=== PATIENT | female | born 1980 ===

== ENCOUNTER 2016-11-20 13:04 | Emergency (ER) | payer MEDICAID ==
[2016-11-20 13:16] VITALS: BP 139/85; PULSE 99; RESP 16; TEMP 98.2; O2SAT 100
--- NOTE | 2016-11-20 13:43 | ED PDOC ---
HPI: Skin/Bite Injury Time Seen by Provider: 11/20/16 13:17 Chief Complaint (Nursing): Abnormal Skin Integrity Chief Complaint (Provider): Rash History Per: Patient History/Exam Limitations: no limitations Onset/Duration Of Symptoms: Days Current Symptoms Are (Timing): Still Present Location Of Injury: Right: Back (lower), Left: Back Additional History Per: Patient Additional Complaint(s): 36yo female, presents to the ED for evaluation of a pruritic rash, present on her lower back for the past 9 days. She reports similar rash in the past but states this instance is the worst. She denies any fever, chills, new clothing or exposure to new detergents, lotions. She offers no other medical complaints. Past Medical History Reviewed: Historical Data, Nursing Documentation, Vital Signs Vital Signs: Last Vital Signs Temp 98.2 F 11/20/16 13:12 Pulse 99 H 11/20/16 13:12 Resp 16 11/20/16 13:12 BP 139/85 11/20/16 13:12 Pulse Ox 100 11/20/16 15:04 - Medical History PMH: HTN - Surgical History Surgical History: No Surg Hx - Family History Family History: States: No Known Family Hx, Unknown Family Hx - Immunization History Hx Tetanus Toxoid Vaccination: No Hx Influenza Vaccination: No Hx Pneumococcal Vaccination: No - Home Medications Home Medications: Ambulatory Orders Medication Instructions Recorded Naproxen [Naprosyn] 1 tab PO BID PRN #25 tab 06/12/14 Azithromycin [Zithromax] 250 mg PO DAILY #6 tab 11/19/15 Naproxen [Naprosyn] 500 mg PO BID #20 tab 11/19/15 oxyCODONE/Acetaminophen [Percocet 1 ea PO Q6H PRN #12 tab 11/19/15 5/325 mg Tab] Cephalexin [cephalexin] 500 mg PO Q6 #28 cap 11/20/16 Mupirocin 2% Cream [Bactroban 1 applic TOP BID #1 tube 11/20/16 Cream] - Allergies Allergies/Adverse Reactions: Allergies Allergy/AdvReac Type Severity Reaction Status Date / Time peanut Allergy RASH Verified 11/19/15 14:23 pineapple Allergy RASH Verified 11/19/15 14:24 Review of Systems ROS Statement: Except As Marked, All Systems Reviewed And Found Negative Constitutional: Negative for: Fever, Chills Skin: Positive for: Rash Physical Exam - Reviewed Nursing Documentation Reviewed: Yes Vital Signs Reviewed: Yes - Physical Exam Appears: Positive for: Non-toxic, No Acute Distress Head Exam: Positive for: ATRAUMATIC, NORMAL INSPECTION, NORMOCEPHALIC Skin: Positive for: Warm, Rash (scatteres fernucles noted to bilateral lower back.) Cardiovascular/Chest: Positive for: Regular Rate, Rhythm Respiratory: Negative for: Respiratory Distress Neurologic/Psych: Positive for: Alert, Oriented. Negative for: Motor/Sensory Deficits - ECG O2 Sat by Pulse Oximetry: 100 (RA) Pulse Ox Interpretation: Normal - Radiology X-Ray: Read By Radiologist X-Ray Interpretation: Other (no displaced fx) - Progress ED Course And Treament: Pt. evaluated by Dr. Vega who agrees with plan and disposition. Medical Decision Making Medical Decision Making: Time: 1326 Impression: Likely folliculitis Plan: -- Fingerstick Reassess Scribe Attestation: Documented by Tarah Lang acting as a scribe for ELOINA Moraes Provider Attestation: All medical record entries made by the Scribe were at my direction and personally dictated by me. I have reviewed the chart and agree that the record accurately reflects my personal performance of the history, physical exam, medical decision making, and the department course for this patient. I have also personally directed, reviewed, and agree with the discharge instructions and disposition. Disposition - Clinical Impression Clinical Impression: Cellulitis - Patient ED Disposition Is Patient to be Admitted: No - Disposition Referrals: [facility] [place] [Outside] [facility] [Outside] Disposition: Routine/Home Disposition Time: 14:59 Condition: STABLE Prescriptions: Cephalexin [cephalexin] 500 mg PO Q6 #28 cap Mupirocin 2% Cream [Bactroban Cream] 1 applic TOP BID #1 tube Instructions: Cellulitis (ED) Forms: [employer] (Rwandan) Print Language: K[place]
== END 2016-11-20 15:10 | disposition home or self-care (01) ==
LOC: H.ER 13:04
DX: L03.90 Cellulitis, unspecified (principal); I10 Essential (primary) hypertension

== ENCOUNTER 2018-02-05 15:33 | Emergency (ER) | payer MEDICAID ==
--- NOTE | 2018-02-05 15:53 | ED PDOC ---
HPI: Influenza Time Seen by Provider: 02/05/18 15:45 Chief Complaint: Cough, Cold, Congestion Chief Complaint (Provider): Cough History Per: Patient Exam Limitations: no limitations Onset/Duration Of Symptoms: Days (5x days) Symptoms include: bodyaches, sore throat, cough. denies: fever (fever initially, has since resolved), nasal congestion Additional complaint(s):: 37 year old female with a past medical history of hypertension presents to the ED for an evaluation of a cough that started 5x days ago. Patient reports having associated symptoms of a sore throat, bodyaches, and initially a fever, which has resolved. Patient reports taking mucinex with some relief. Patient denies having nasal congestion. PMD: None provided Past Medical History Reviewed: Historical Data, Nursing Documentation, Vital Signs Vital Signs: Last Vital Signs Temp 97.6 F 02/05/18 15:38 Pulse 101 H 02/05/18 15:38 Resp 20 02/05/18 15:38 BP 154/97 H 02/05/18 15:38 Pulse Ox 98 02/05/18 15:38 CONOR Report Viewed: Yes - Medical History PMH: HTN - Family History Family History: States: No Known Family Hx - Social History Current smoker - smoking cessation education provided: No Alcohol: Occasional Drugs: Denies - Immunization History Hx Tetanus Toxoid Vaccination: No Hx Influenza Vaccination: No Hx Pneumococcal Vaccination: No - Home Medications Home Medications: Ambulatory Orders Medication Instructions Recorded Naproxen [Naprosyn] 1 tab PO BID PRN #25 tab 06/12/14 Azithromycin [Zithromax] 250 mg PO DAILY #6 tab 11/19/15 Naproxen [Naprosyn] 500 mg PO BID #20 tab 11/19/15 oxyCODONE/Acetaminophen [Percocet 1 ea PO Q6H PRN #12 tab 11/19/15 5/325 mg Tab] Cephalexin [cephalexin] 500 mg PO Q6 #28 cap 11/20/16 Mupirocin 2% Cream [Bactroban 1 applic TOP BID #1 tube 11/20/16 Cream] Albuterol HFA [Ventolin HFA 90 2 puff IH [id number] PRN #1 inhaler 02/05/18 mcg/actuation (8 g)] Ibuprofen [Motrin] 600 mg PO Q8 PRN #21 tab 02/05/18 Promethazine/Codeine 5 ml PO Q12 PRN #100 ml 02/05/18 [Codeine/Promethazine 10 MG/5 Ml-6.25 MG/5 Ml] - Allergies Allergies/Adverse Reactions: Allergies Allergy/AdvReac Type Severity Reaction Status Date / Time peanut Allergy RASH Verified 02/05/18 15:38 pineapple Allergy RASH Verified 02/05/18 15:38 Review of Systems ROS Statement: Except As Marked, All Systems Reviewed And Found Negative Constitutional: Positive for: Other (bodyaches). Negative for: Fever (fever initially, has since resolved) ENT: Positive for: Throat Pain. Negative for: Nose Congestion Respiratory: Positive for: Cough Physical Exam - Reviewed Nursing Documentation Reviewed: Yes Vital Signs Reviewed: Yes - Physical Exam Appears: Positive for: Well, Non-toxic, No Acute Distress Head Exam: Positive for: ATRAUMATIC, NORMOCEPHALIC Skin: Positive for: Normal Color, Warm, Dry ENT: Positive for: Other (hoarse voice noted) Cardiovascular/Chest: Positive for: Regular Rate, Rhythm Respiratory: Positive for: Normal Breath Sounds Neurologic/Psych: Positive for: Alert, Oriented (3x) Medical Decision Making Medical Decision Makin:45 Initial impression: 37 year old female with a cough. Initial plan: * duoneb 3 ml UD 3 ml INH * peak flow pre post treatment * reevaluation Scribe Attestation: Documented by Tracie Harrell, acting as a scribe for Rosalio Pozo PA-C. Provider Scribe Attestation: All medical record entries made by the Scribe were at my direction and personally dictated by me. I have reviewed the chart and agree that the record accurately reflects my personal performance of the history, physical exam, medical decision making, and the department course for this patient. I have also personally directed, reviewed, and agree with the discharge instructions and disposition. - ECG O2 Sat by Pulse Oximetry: 98 (RA) Pulse Ox Interpretation: Normal Disposition - Clinical Impression Clinical Impression: Flu-like symptoms - Patient ED Disposition Is Patient to be Admitted: No - Disposition Disposition: Routine/Home Disposition Time: 16:25 Condition: FAIR Prescriptions: Albuterol HFA [Ventolin HFA 90 mcg/actuation (8 g)] 2 puff IH [id number] PRN #1 inhaler PRN Reason: Cough Ibuprofen [Motrin] 600 mg PO Q8 PRN #21 tab PRN Reason: Pain, Moderate (4-7) Promethazine/Codeine [Codeine/Promethazine 10 MG/5 Ml-6.25 MG/5 Ml] 5 ml PO Q12 PRN #100 ml PRN Reason: Cough Instructions: Flu Forms: [facility] ED School/Work Excuse
[2018-02-05] MEDS ORDERED: Albuterol-Ipratrop 3 mg / 0.5 (3 ml) UD INH STA (15:55)
[2018-02-05] MEDS ORDERED: Albuterol-Ipratrop 3 mg / 0.5 (3 ml) UD ONE (16:08)
[2018-02-05 16:41] VITALS: BP 136/86; PULSE 95; RESP 18; TEMP 97.9; O2SAT 99
== END 2018-02-05 16:30 | disposition home or self-care (01) ==
LOC: H.ER 15:33
DX: J11.1 Influenza due to unidentified influenza virus with other respiratory manifestations (principal); I10 Essential (primary) hypertension